=== PATIENT | female | born 1980 | race Caucasian/White ===

== ENCOUNTER → 2019-11-23 | Outpatient (CLI) | payer BC ==
[~2019-11-23] MED LIST: FEXO1TAB31 PO; IBUP400T18 PO; LEVO100T5 PO; LISI40TA PO; METO50TA29 PO
== END | disposition home or self-care (01) ==
LOC: LAB 10:50
PROVIDERS: ATTEND Nurse Anesthetist, Certified Registered
DX: Z01.812 Encounter for preprocedural laboratory examination (principal); R13.10 Dysphagia, unspecified; Z20.828 Contact with and (suspected) exposure to other viral communicable diseases
CPT/HCPCS: U0003-CS

== ENCOUNTER → 2019-11-25 | Day surgery (SDC) | payer BC ==
[~2019-11-25] MED LIST changes: +IPRATRPIUM/ALBUTEROL 0.5/2.5MG 3 ML NEBU. NEB PRN; +IV RINGERS SOLUTION,LACTATED 1,000 ML IV SCH; +LIDOCAINE 2% PF 5 ML VIAL. ONE; +MIDAZOLAM HCL PF 2 MG/2 ML VIAL. IV ONE; +ONDANSETRON PF 4 MG/2 ML VIAL. IV PRN; +PROPOFOL 10,000 MCG/ML (20ML) VIAL IV ONE
[2019-11-25 08:41] LABS: U PREG PATIENT NEGATIVE (NEG)
[2019-11-25 10:00] VITALS: BP 132/84
--- NOTE | 2019-11-25 10:14 | RAD ---
PORTABLE CHEST 1V History: Possible aspiration Comparison: None. Findings: Single view of the chest is submitted. There is no infiltrate, pneumothorax, or effusion. The pericardial cardiac silhouette is within normal limits in size. Impression: 1. There is no radiographic evidence of acute cardiopulmonary disease. Electronically signed by: Eric Mcdonald MD (11/25/2019 10:11 AM) [id number]
--- NOTE | 2019-11-26 15:08 | PATHOLOGY ---
[facility] Accession Number: [id number] . 01 Material submitted: . esophagus - DISTAL ESOPHAGUS-ESOPHAGITIS. Modifiers: distal . 02 Diagnosis: Esophageal biopsy, distal esophagus: - Segment of hyperplastic squamous esophageal mucosa with contiguous columnar lined mucosa showing mild active chronic inflammation and focal intestinal metaplasia with goblet cells consistent with Borja's change. (JPM:jennifer; 11/26/2019) QMS 11/26/2019 1036 Local . 02 Comment: There is no dysplasia or evidence of malignancy. (JPM:jennifer; 11/26/2019) . 02 Electronically signed: . Frank Vela MD, Pathologist NPI- [id number] . 01 Gross description: . The specimen is received in formalin, labeled "Berta Andrés, distal esophagus esophagitis". Received is a segment of pale aguero soft tissue measuring 0.4 cm in maximum dimensions. The specimen is submitted entirely in cassette A1. ([facility]; 11/25/2019) QAC/QAC 11/25/2019 1818 Local . 02 Pathologist provided ICD-10: K20.9 . 02 CPT . 462472 Specimen Comment: A courtesy copy of this report has been sent to [phone] Specimen Comment: Report sent to Performed at: 01 [facility] [address], [place] [id number] MD Sherwin Navarrete MD Phone: [phone] Performed at: 02 [facility] [address] [place], [place] [id number] MD Frank Vela MD Phone: [phone]
== END | disposition home or self-care (01) ==
LOC: SURG 08:01 → EDUNIT# 09:00
PROVIDERS: ATTEND Internal Medicine Gastroenterology
DX: R13.10 Dysphagia, unspecified (principal); K22.2 Esophageal obstruction; K44.9 Diaphragmatic hernia without obstruction or gangrene; K21.0 Gastro-esophageal reflux disease with esophagitis; K31.89 Other diseases of stomach and duodenum; M19.90 Unspecified osteoarthritis, unspecified site; I10 Essential (primary) hypertension; F17.210 Nicotine dependence, cigarettes, uncomplicated; Z98.890 Other specified postprocedural states; Z88.0 Allergy status to penicillin; Z79.899 Other long term (current) drug therapy
CPT/HCPCS: 43239; 43450; 71045; 81025; 88305; J2001; J2704; J7120

== ENCOUNTER → 2020-01-26 | Outpatient (CLI) | payer BC ==
[2019-11-25 10:00] VITALS: BP 132/84
[~2020-01-26] MED LIST changes: -IPRATRPIUM/ALBUTEROL 0.5/2.5MG 3 ML NEBU. NEB PRN; -IV RINGERS SOLUTION,LACTATED 1,000 ML IV SCH; -LIDOCAINE 2% PF 5 ML VIAL. ONE; -MIDAZOLAM HCL PF 2 MG/2 ML VIAL. IV ONE; -ONDANSETRON PF 4 MG/2 ML VIAL. IV PRN; -PROPOFOL 10,000 MCG/ML (20ML) VIAL IV ONE
== END ==
LOC: LAB 11:19
PROVIDERS: ATTEND Nurse Anesthetist, Certified Registered
DX: Z01.818 Encounter for other preprocedural examination (principal); K21.9 Gastro-esophageal reflux disease without esophagitis; Z20.828 Contact with and (suspected) exposure to other viral communicable diseases
CPT/HCPCS: U0003